=== PATIENT | male | born 1990 | race Caucasian/White ===

== ENCOUNTER 2017-01-15 16:18 | Outpatient (CLI) | payer OTHER ==
--- NOTE | 2017-01-16 14:04 | MRI Report ---
EXAM: MRI LUMBAR SPINE WITHOUT CONTRAST EXAM DATE: 01/15/2017 04:55 PM. CLINICAL HISTORY: Low back pain. COMPARISON: None. TECHNIQUE: Multiplanar, multisequence T1-weighted and fluid-sensitive sequences of the lumbar spine f rom T12 to S1 without contrast. Other: None. FINDINGS: Spinal Cord: The conus terminates at L1-L2. No signal abnormality in the visualized spinal cord. Alignment: Normal. No scoliosis or spondylolisthesis. Bone Marrow: Five nec-fsd-julttpt lumbar vertebral bodies are assumed. No gross fractures or bone les ions. No bone marrow edema. Disk Levels/Facets: T12-L1: Unremarkable. L1-L2: Unremarkable. L2-L3: Unremarkable. L3-L4: Disk dehydration, annular tear, left paracentral focal disk protrusion is present on series 60 1 image 14. Mild central stenosis, no foraminal stenosis. L4-L5: Disk dehydration, broad-based bulge slightly flattens the ventral thecal sac. Prominent facets and ligamentum flavum. No central or foraminal stenosis. L5-S1: Broad-based disk bulge is seen, prominent facets. Mild indentation of ventral thecal sac. No c entral or foraminal narrowing. Prominent facets. Musculature: Normal. No edema or fatty atrophy. Other: The visualized pelvic cavity is unremarkable. IMPRESSION: 1. Spinal cord terminates at L1-L2 which is normal, no abnormal cord signal is noted. 2. L2-L3 is normal. 3. L3-L4 shows disk dehydration, annular tear and left paracentral focal protrusion creating mild [place] tral stenosis. No foraminal stenosis is seen. 4. L4-L5 shows some disk dehydration, slightly flattening the ventral thecal sac, prominent facets an d ligamentum flavum. No central or foraminal stenosis. 5. L5-S1 shows a broad-based bulge, mild indentation of ventral thecal sac. No central or foraminal s tenosis. Comment: The following findings are so common in adults without low back pain that while we report th eir presence, they must be interpreted with caution and in the context of the clinical situation. (Re heidi Garcia et al, Spine 2001) Prevalence of findings in patients without low back pain: Disk degeneration (any evidence): 92% Disk desiccation/T2 signal loss: 83% Disk height loss: 56% Disk bulge: 64% Disk protrusion: 32% Annular tear/high intensity zone: 38% [facility] Referring Provider Line: [phone] SITE ID: [id number]
== END 2017-01-15 16:19 | disposition home or self-care (01) ==
LOC: DI 16:18
PROVIDERS: ATTEND Nurse Practitioner Family
DX: M51.26 Other intervertebral disc displacement, lumbar region (principal); M51.36 Other intervertebral disc degeneration, lumbar region
CPT/HCPCS: 72148